=== PATIENT | female | born 1985 | race Caucasian/White ===

== ENCOUNTER 2021-12-04 18:13 | Observation (INO) | payer MEDICAID ==
[~2021-12-04] VITALS: Ht 157.5 cm; Wt 54.4 kg
[2021-12-04 18:18] VITALS: BP_SYST 131
[2021-12-04] MEDS ORDERED: NACL 0.9% 1,000 ML IV ONE (19:15)
[2021-12-04] MEDS ORDERED: ONDANSETRON HCL 4 MG/2 ML VIAL IVP ONE (19:15)
[2021-12-04] MEDS ORDERED: MORPHINE 4 MG INJ. 4 MG/ML VIAL IVP ONE ×2 (19:15→20:30)
[2021-12-04 19:27] LABS: BASOPHILS % (AUTO) 0.2 % (0.0-2.0); EOSINOPHILS % (AUTO) 0.3 % (0.0-4.0); HEMOGLOBIN 11.4 g/dL (12.0-16.0); LYMPHOCYTES # (AUTO) 0.1 K/uL (1.0-5.5); MONOCYTES # (AUTO) 0.5 K/uL (0.0-1.0)
[2021-12-04 20:12] LABS: BILIRUBIN,URINE NEGATIVE (NEGATIVE); BLOOD, URINE NEGATIVE (NEGATIVE); COLOR,URINE YELLOW (YELLOW); GLUCOSE,URINE NEGATIVE (NEGATIVE); KETONES,URINE 1+ (NEGATIVE); LEUKOCYTE ESTERASE ,URINE NEGATIVE (NEGATIVE); NITRITE, URINE NEGATIVE (NEGATIVE); PROTEIN URINE NEGATIVE (NEGATIVE); UROBILINOGEN,URINE 0.2 (0.2-1.0)
[2021-12-04 20:17] LABS: CLARITY/URINE SLIGHTLY HAZY (CLEAR)
[2021-12-04 20:29] LABS: HEMATOCRIT 34.1 % (36-48); LYMPHOCYTES % (AUTO) 2.3 % (20.5-51.5); MEAN CORPUSCULAR HEMOGLOBIN 29 pg (27-31); MEAN CORPUSCULAR HGB CONC 33 % (32-36); MEAN CORPUSCULAR VOLUME 87 fL (79.0-98.0); MONOCYTES % (AUTO) 7.9 % (1.7-9.3); NEUTROPHILS # (AUTO) 5.1 K/uL (1.8-7.7); NEUTROPHILS % (AUTO) 89.3 % (40.0-70.0); PLATELET COUNT (AUTO) 220 K/uL (130-430); RED BLOOD CELL COUNT(AUTO) 3.92 MIL/uL (4.2-6.2); RED CELL DISTRIBUTION WIDTH 14.7 % (9.0-15.0); WHITE BLOOD COUNT (AUTO) 5.8 K/uL (4.8-10.8)
[2021-12-04 20:35] LABS: CALCIUM 8.5 mg/dL (8.4-11.0); CREATININE 0.75 mg/dL (0.55-1.30)
[2021-12-04 20:50] LABS: ALBUMIN 3.6 g/dL (3.4-4.8); TOTAL BILIRUBIN 0.2 mg/dL (0.0-1.0)
[2021-12-04] MEDS ORDERED: KETAMINE HCL 500 MG/10 ML VIAL IVP ONE (21:45)
[2021-12-04] MEDS ORDERED: KETAMINE 30 MG/3 ML SYRINGE ONE (21:53)
[2021-12-04] MEDS ORDERED: GENTAMICIN 100 mg/50 mL NS 50 ML IV ONE (22:00)
[2021-12-04] MEDS ORDERED: CLINDAMYCIN 900 mg/50mL D5W 50 ML IV ONE (22:00)
[2021-12-04] MEDS ORDERED: cefTRIAXone 500 MG in LIDOCAINE 1%, 20 ML MDV 1 ML IM ONE (22:15)
[2021-12-04] MEDS ORDERED: TEMAZEPAM 7.5 MG CAPSULE PO PRN (22:30)
[2021-12-04] MEDS ORDERED: ACETAMINOPHEN 500 MG TABLET PO ONE (22:30)
[2021-12-04] MEDS ORDERED: MORPHINE 4 MG INJ. 4 MG/ML VIAL IVP PRN (22:30)
[2021-12-05] MEDS ORDERED: CLINDAMYCIN 900 mg/50mL D5W 50 ML IV ONE (01:34)
[2021-12-05 02:20] VITALS: BP_SYST 105
[2021-12-05 02:24] VITALS: BP_SYST 105
[2021-12-05] MEDS ORDERED: MORPHINE 4 MG INJ. 4 MG/ML VIAL IVP PRN (04:45)
[2021-12-05] MEDS ORDERED: NALOXONE HCL 0.4 MG/ML AMP (NARCAN) IVP PRN (04:45)
[2021-12-05 05:03] VITALS: BP_SYST 117
== END 2021-12-05 07:40 | disposition left against medical advice (07) ==
LOC: SED 18:13 → SMU 22:23 → INTOOBSV 22:23 → SMU 22:47
PROVIDERS: ADMIT Obstetrics & Gynecology; ATTEND Obstetrics & Gynecology
DX: R10.30 Lower abdominal pain, unspecified (principal); Z20.822 Contact with and (suspected) exposure to COVID-19; R11.2 Nausea with vomiting, unspecified; Z53.29 Procedure and treatment not carried out because of patient's decision for other reasons
CPT/HCPCS: 36415; 74176; 76376; 76856; 80053; 81003; 83605; 83690; 84702; 85025; 87426; 96361; 96365; 96367; 96372; 96375; 96376 ×2; 99285; G0378 ×2; J0696; J1580; J2270 ×2; J2405; J3490